=== PATIENT | male | born 1985 | race African-American/Black ===

== ENCOUNTER 2019-04-12 13:25 | Emergency (ER) | payer SELFPAY ==
[~2019-04-12] VITALS: Ht 177.8 cm; Wt 72.7 kg
[2019-04-12] MEDS ORDERED: ANTIBIOTIC PO (13:30)
[2019-04-12] MEDS ORDERED: LIDOCAINE/PF 1% 5 ML VIAL INJ ONE (14:15)
[2019-04-12] MEDS ORDERED: SULFAMETHOX/TRIMETH DS 800-160 MG/TABLET PO ONE (14:15)
[2019-04-12] MEDS ORDERED: CEPHALEXIN MONOHYDRATE 500 MG CAPSULE PO ONE (14:15)
[2019-04-12 15:01] VITALS: BP 126/87
== END 2019-04-12 15:17 | disposition home or self-care (01) ==
LOC: EMS 13:27
DX: L02.412 Cutaneous abscess of left axilla (principal)
CPT/HCPCS: 10060; 99283; J2001

== ENCOUNTER 2019-04-18 17:25 | Emergency (ER) | payer SELFPAY ==
[~2019-04-18] VITALS: Ht 177.8 cm; Wt 72.7 kg
[~2019-04-18 17:25] MED LIST: ANTIBIOTIC PO
[2019-04-18 19:21] VITALS: BP 130/80
== END 2019-04-18 19:23 | disposition home or self-care (01) ==
LOC: EMS 17:26
DX: Z48.01 Encounter for change or removal of surgical wound dressing (principal); F12.90 Cannabis use, unspecified, uncomplicated